=== PATIENT | male | born 1960 | race Caucasian/White ===

== ENCOUNTER 2024-07-02 20:48 | Emergency (ER) | payer OTHER, SELFPAY ==
[2024-07-02 21:01] VITALS: BP 92/65
--- NOTE | 2024-07-02 21:08 | ED.GENMED ---
History of Present Illness
General
Chief Complaint: Crisis Evaluation
Time Seen by Provider: 07/02/24 21:08
History of Present Illness
History of Present Illness:
TIME OF INITIAL ENCOUNTER: 10 PM
HPI: The patient was brought here by [place] police with concern for 302. Sister was concerned for patient's health. The patient does have an extensive mental health history including schizoaffective disorder. As I talked the room the patient
perseverates over his housing situation and that he was not paying rent and he wanted his sister to pay the rent. He cannot clearly tell me why he is here now. The patient states he takes Depakote along with 2 other psychiatric medications.
EXAM:
GENERAL: In no distress
HEENT: Moist oral mucosa
CARDIOVASCULAR: No murmurs, normal heart rate, regular rhythm, No chest wall tenderness
PULMONARY: No respiratory distress, breath sounds are clear and equal
ABDOMEN: Soft with no peritoneal signs, no tenderness
NEUROLOGIC: Good strength all extremities, no coordination deficits
PSYCHIATRIC: Lacks logic at times, impaired focus, impaired judgment and insight, somewhat of a bizarre affect
EXTREMITIES: Nontender, no edema, moves all extremities equally
SKIN: No rash, no lesions
NUMBER AND COMPLEXITY OF PROBLEMS ADDRESSED AT THE ENCOUNTER
� Chronic conditions affecting care: Bipolar, schizophrenia, depression
� Acute Exacerbation and/or Progression of Chronic Illness: This is an acute but recurring problem
� Differential Diagnosis includes: Exacerbation of schizoaffective disorder, failure to thrive, electrolyte abnormality
AMOUNT AND/OR COMPLEXITY OF DATA TO BE REVIEWED AND ANALYZED
� I performed an independent evaluation of and my interpretation is:
EKG:
CT:
X-rays:
Laboratory Studies: White count and hemoglobin are normal, BUN is elevated at 36, glucose 168, Depakote level low, UDS positive for marijuana, alcohol undetected
Other:
� Review of other/old records: I reviewed records, the patient was seen here as a 302 in March 2021 and ultimately the [address] Pepper and was discharged to police custody. At that time patient received Invega
Sustenna
� Clinical information was obtained by an independent historian: I spoke to crisis
� Prescriptions/Medications Considered but not given:
� Further testing considered but not performed:
RISK OF COMPLICATIONS AND/OR MORBIDITY OR MORTALITY OF PATIENT MANAGEMENT
� Social determinants of health affecting care: Lives at home and reportedly has not been paying rent
� Discussion with other providers: Discussed with crisis
� Escalation of care including admission/observation vs risk of discharge considered: 302 was upheld by the delegate. I also recommend inpatient evaluation and treatment of psychiatric center. Initial blood pressure slightly
low however on recheck it was normotensive without any intervention.
ANY OTHER UPDATES:
12:50 AM: Spoke to crisis again�bed search continuing
Past History
Past History
ED Past Medical History: Psychiatric (Schizophrenia, depression, anxiety) and Other (Emphysema)
ED Past Surgical History: Orthopedic (Left foot surgery, left small digit surgery) and Other (Inguinal hernia repair)
Social History
Tobacco: Smoker
Alcohol: None
Drug: Marijuana
Personal: Single
Living: alone
Employment: Not employed
Family History
Family History: Hypertension; Negative Early CAD
Course
Orders/Labs/Results
Orders:
Orders
07/02/24 22:13
Alcohol Urgent
Complete Blood Count/With Diff Urgent
Comprehensive Metabolic Panel Urgent
Depakane Urgent
Comment: ADD ON
07/02/24 22:37
Add On- LAB Urgent
Tests Added?: depakote level
07/02/24 23:48
Urinalysis Reflex To Culture Urgent
Date Specimen was Collected: 07/02/24
Time Specimen was Collected: 23:42
Urine Drug Abuse Screen Urgent
Date Specimen was Collected: 07/02/24
Time Specimen was Collected: 23:42
Urine Microscopic Reflex Cult Urgent
Abnormal Lab Results
07/02/24 07/02/24
22:13 23:48
RBC 4.45 L 10^6/uL
(4.70-6.10)
MCH 32.1 H pg
(27.0-31.0)
Chloride 109 H mmol/L
(98-107)
BUN 36 H mg/dl
(9-20)
Glucose 168 H mg/dl
(70-99)
Total Protein 6.2 L g/dl
(6.3-8.2)
Urine Albumin (Reflex) 1+ A
(Neg - Trace)
Valproic Acid 12.6 L ug/ml
(50.0-120.0)
U Marijuana (THC) Screen Positive H
(Negative)
07/02/24 22:13
07/02/24 22:13
Vital Signs
Initial and Last Documented VS:
Initial Vital Signs
Temp Pulse Resp BP Pulse Ox
36.3 C 106 20 92/65 98
07/02/24 21:01 07/02/24 21:01 07/02/24 21:01 07/02/24 21:01 07/02/24 21:01
Last Documented Vital Signs
Temp Pulse Resp BP Pulse Ox
36.3 C 83 18 121/78 99
07/02/24 21:01 07/02/24 22:55 07/02/24 22:55 07/02/24 22:55 07/02/24 22:56
ED Attending Note
-
Portions of this chart may have been created with voice recognition software.� Occasional wrong word or��sound alike� substitutions may have occurred due to the inherent limitations of voice recognition software.
Discharge Plan
Departure
Patient Disposition: Psych Facility
Date of Disposition: 07/02/24
Time of Disposition: 22:44
Discharge Problem:
Schizoaffective disorder
Prescriptions:
No Action
Unobtainable
0
Referrals:
Demetrius Sawant, [Family Provider] -
Interventions
Interventions:
*Risk Screen - Suicide Last Done: 07/02/24 21:02
*General Assessment Last Done: 07/02/24 22:56
*Neglect/Abuse Screening Last Done: 07/02/24 22:56
*ED- Fall Risk Assessment Last Done: 07/02/24 22:56
*ED COVID-19 Vaccine History Last Done: 07/02/24 22:56
ED-Psychological Assessment Last Done: 07/02/24 22:56
Discharge Date and Time
Print Language: SAMMARINESE
[2024-07-02 22:23] LABS: % Basophils 0.1 % (0-2); % Eosinophils 1.5 % (0-6); % Immature Granulocytes 0.3 % (0-0.5); % Lymphocytes 25.9 % (20.5-51.1); % Monocytes 8.3 % (1.7-9.3); % Neutrophils 63.9 % (42.2-75.2); Absolute Eosinophils 0.1 10^3/uL (0-0.7); Absolute Lymphocytes 1.8 10^3/uL (1.2-3.4); Absolute Monocytes 0.6 10^3/uL (0.1-0.6); Absolute Neutrophils 4.5 10^3/uL (1.4-6.5); Hematocrit 41.1 % (39.0-52.0); Hemoglobin 14.3 g/dL (13.0-18.0); Mean Corp Hgb Conc. 34.8 g/dL (33.0-37.0); Mean Corpuscular Hgb 32.1 pg (27.0-31.0); Mean Corpuscular Volume 92.4 fL (80.0-94.0); Mean Platelet Volume 10.1 fL (7.4-10.4); Nucleated Red Blood Cells % 0 % (-); Platelet Count 230 10^3/uL (130-400); Red Blood Cell Count 4.45 10^6/uL (4.70-6.10); Red Cell Dist. Width 12.7 % (11.5-14.5); White Blood Cell Count 7.1 10^3/uL (4.8-10.8)
[2024-07-02 22:44] LABS: ALT (SGPT) 28 U/L (0-50); AST (SGOT) 39 U/L (17-59); Albumin 3.7 g/dl (3.5-5.0); Alkaline Phosphatase 49 U/L (38-126); Blood Urea Nitrogen 36 mg/dl (9-20); Calcium 9.1 mg/dl (8.4-10.2); Carbon Dioxide 27 mmol/L (22-30); Chloride 109 mmol/L (98-107); Glucose 168 mg/dl (70-99); Potassium 4.1 mmol/L (3.5-5.1); Sodium 141 mmol/L (135-145); Total Bilirubin 0.5 mg/dl (0.2-1.3); Total Protein 6.2 g/dl (6.3-8.2); eGFR > 60.00
[2024-07-02 22:53] LABS: Alcohol None Detected
[2024-07-02 22:55] VITALS: BP 121/78
[2024-07-02 22:57] LABS: Depakane 12.6 ug/ml (50.0-120.0)
[2024-07-03 00:11] LABS: Urine Albumin 1+ (Neg - Trace); Urine Bilirubin Negative (Negative); Urine Character Clear (Clear); Urine Color Yellow; Urine Glucose Negative (Negative); Urine Ketone Negative (Negative); Urine Leukocyte Negative (Negative); Urine Nitrite Negative (Negative); Urine Occult Blood Negative (Negative); Urine Specific Gravity 1.025 (<1.030); Urine Urobilinogen Negative (Neg - 1+)
[2024-07-03 00:13] LABS: Amphetamines Negative (Negative); Barbiturates Negative (Negative); Benzodiazepines Negative (Negative); Buprenorphine Negative (Negative); Cocaine Negative (Negative); Marijuana Positive (Negative); Methadone Negative (Negative); Methamphetamines Negative (Negative); Opiates Negative (Negative); Phencyclidine Negative (Negative); Tricyclic Antidepressants Negative (Negative)
[2024-07-03 01:14] LABS: Urine Amorphous Seen; Urine Bacteria Few (Negative); Urine Red Blood Cell 0-2 /HPF (0-2); Urine White Cell 0-2 /HPF (0-5)
[2024-07-03] MEDS: KLONOPIN 1 MG PO (09:38)
[2024-07-03] MEDS: ATARAX 25 MG PO (09:38)
[2024-07-03 10:38] VITALS: BP 122/73
== END 2024-07-03 10:44 ==
LOC: EMR 20:48
PROVIDERS: EMERGENCY PHYSICIAN Emergency Medicine; FAMILY PHYSICIAN Family Medicine
DX: F25.9 Schizoaffective disorder, unspecified (principal); F31.9 Bipolar disorder, unspecified; F17.210 Nicotine dependence, cigarettes, uncomplicated; Z79.899 Other long term (current) drug therapy
CPT/HCPCS: 99285; 80053; 80164; 80306; 81003; 81015; 82077; 85025